=== PATIENT | male | born 1980 | race Caucasian/White ===

== ENCOUNTER → 2019-02-15 | Outpatient (CLI) | payer OTHER | LOC: FIMAGING 09:01 | PROVIDERS: ATTEND Surgery | PROC: CF1CYZZ Planar Nuclear Medicine Imaging of Hepatobiliary System, All using Other Radionuclide (ICD-10-PCS; principal; 2019-02-15) | DX: R10.11 Right upper quadrant pain (principal); Z90.49 Acquired absence of other specified parts of digestive tract | CPT/HCPCS: 78226; A9537 ==